=== PATIENT | male | born 1955 | race Caucasian/White ===

== ENCOUNTER 2017-11-21 15:53 | Inpatient (IN) | payer MEDICAID ==
[~2017-11-21] VITALS: Ht 175.3 cm; Wt 71.2 kg
[~2017-11-21 15:53] MED LIST: AMLO2.5T45 PO; FURO20TA4 PO; GLIM1TAB2 PO
[2017-11-21] MEDS ORDERED: ONDANSETRON HCL 4MG/2ML INJ IV STA (16:28)
[2017-11-21] MEDS ORDERED: ASPIRIN 81MG TABLET PO ONE (16:30)
[2017-11-21] MEDS ORDERED: FUROSEMIDE 40MG/4ML VIAL IV ONE (16:30)
[2017-11-21 17:29] LABS: BASOPHILS % 0.8 % (0.0-2.0); EOSINOPHILS % 1.9 % (0.0-5.0); HEMATOCRIT. 23.4 % (42.0-52.0); HEMOGLOBIN. 7.9 g/dL (14.0-18.0); LYMPHOCYTES % 8.5 % (20.0-50.0); MEAN CORPUSCULAR HEMOGLOBIN 30.7 pg (28.0-32.0); MEAN CORPUSCULAR VOLUME 90.3 fL (80.0-94.0); MEAN PLATELET VOLUME 9.2 fl (7.4-10.4); MONOCYTES % 13.3 % (2.0-8.0); NEUTROPHILS % 75.5 % (40.0-76.0); PLATELET 224 x1000/uL (130-400); RED BLOOD CELL COUNT 2.59 mill/uL (4.7-6.1)
[2017-11-21 17:35] LABS: CHLORIDE 99 mEq/L (98-107); INR 1.2; PARTIAL THROMBOPLASTIN TIME 32.2 sec (23.4-31.0); PROTHROMBIN TIME 11.8 sec (9.1-11.1)
[2017-11-21 17:42] LABS: ETHANOL BLOOD < 10 mg/dL
[2017-11-21] MEDS ORDERED: SODIUM BICARBONATE 8.4% 1 MEQ/ML 50ML SYR IV ONE (18:30)
[2017-11-21] MEDS ORDERED: CALCIUM CHLORIDE 1GM/10ML SYR IV ONE ×2 (18:30→18:42)
[2017-11-21] MEDS ORDERED: SODIUM POLYSTYRENE SULFONATE 15 G/60 ML BOT PO ONE (18:30)
[2017-11-21 21:18] LABS: BASOPHILS % 0.7 % (0.0-2.0); HEMATOCRIT. 23.3 % (42.0-52.0); HEMOGLOBIN. 7.9 g/dL (14.0-18.0); LYMPHOCYTES % 9.7 % (20.0-50.0); MEAN CORPUSCULAR HEMOGLOBIN 30.7 pg (28.0-32.0); MEAN CORPUSCULAR VOLUME 90.5 fL (80.0-94.0); MONOCYTES % 14.4 % (2.0-8.0); NEUTROPHILS % 72.2 % (40.0-76.0); PLATELET 216 x1000/uL (130-400); RED BLOOD CELL COUNT 2.58 mill/uL (4.7-6.1)
[2017-11-21 23:15] VITALS: BP 159/86
[2017-11-22] VITALS: BP 171/91
[2017-11-22] MEDS ORDERED: GUAIFENESIN 200MG/10ML SUGAR FREE UDC PO PRN (00:15)
[2017-11-22] MEDS ORDERED: DIPHENHYDRAMINE 50MG/ML VIAL IV PRN (00:15)
[2017-11-22] MEDS ORDERED: DEXTROSE 50% WATER 50ML SYRINGE IV PRN (00:15)
[2017-11-22] MEDS ORDERED: IPRATROPIUM/ALBUTEROL 0.5-3(2.5)MG/3ML NEB INH PRN (00:15)
[2017-11-22] MEDS: CLONIDINE 0.1MG TABLET PO PRN (03:36)
[2017-11-22 04:00] VITALS: BP 163/76
[2017-11-22] MEDS: SODIUM CHLORIDE 0.9% INJ 3ML FLUSH IVF SCH ×3 (05:06→22:01)
[2017-11-22] MEDS: INSULIN LISPRO 100 UNITS/ML SUBCUT SCH ×4 (05:07→21:00)
[2017-11-22] MEDS: BLOOD SUGAR DIAGNOSTIC STRIP TEST SCH ×4 (05:08→21:27)
[2017-11-22 08:25] VITALS: BP 119/68
[2017-11-22 10:29] LABS: HEMATOCRIT. 21.2 % (42.0-52.0); HEMOGLOBIN. 7.4 g/dL (14.0-18.0); MEAN CORPUSCULAR HEMOGLOBIN 31.3 pg (28.0-32.0); MEAN CORPUSCULAR VOLUME 89.6 fL (80.0-94.0); MEAN PLATELET VOLUME 8.7 fl (7.4-10.4); PLATELET 207 x1000/uL (130-400); RED BLOOD CELL COUNT 2.36 mill/uL (4.7-6.1)
[2017-11-22 11:54] LABS: PLATELET ESTIMATE NORMAL
[2017-11-22 12:00] VITALS: BP 121/63
[2017-11-22 16:30] VITALS: BP 141/57
[2017-11-22 20:00] VITALS: BP 137/80
[2017-11-22] MEDS: EPOETIN ALFA 10000UNITS/ML VIAL SUBCUT SCH (22:01)
[2017-11-23] VITALS: BP 151/72
[2017-11-23 04:00] VITALS: BP 143/61
[2017-11-23] MEDS: SODIUM CHLORIDE 0.9% INJ 3ML FLUSH IVF SCH ×3 (06:29→21:44)
[2017-11-23] MEDS: BLOOD SUGAR DIAGNOSTIC STRIP TEST SCH ×4 (07:08→21:42)
[2017-11-23] MEDS: INSULIN LISPRO 100 UNITS/ML SUBCUT SCH ×4 (07:08→21:00)
[2017-11-23 08:00] VITALS: BP 148/66
[2017-11-23 12:00] VITALS: BP 133/74
[2017-11-23 12:30] LABS: HEMATOCRIT. 21.5 % (42.0-52.0); HEMOGLOBIN. 7.4 g/dL (14.0-18.0); MEAN CORPUSCULAR HEMOGLOBIN 31.3 pg (28.0-32.0); MEAN CORPUSCULAR VOLUME 91.1 fL (80.0-94.0); MEAN PLATELET VOLUME 8.9 fl (7.4-10.4); PLATELET 187 x1000/uL (130-400); RED BLOOD CELL COUNT 2.36 mill/uL (4.7-6.1); RED CELL DISTRIBUTION WIDTH 15.9 % (11.6-14.6)
[2017-11-23 14:34] LABS: PLATELET ESTIMATE NORMAL
[2017-11-23 16:00] VITALS: BP 126/79
[2017-11-23 20:00] VITALS: BP 166/83
[2017-11-24] VITALS: BP 143/71
[2017-11-24 04:00] VITALS: BP 157/75
[2017-11-24] MEDS: SODIUM CHLORIDE 0.9% INJ 3ML FLUSH IVF SCH ×3 (06:00→21:33)
[2017-11-24] MEDS: BLOOD SUGAR DIAGNOSTIC STRIP TEST SCH ×4 (07:10→21:29)
[2017-11-24] MEDS: INSULIN LISPRO 100 UNITS/ML SUBCUT SCH ×4 (07:40→21:33)
[2017-11-24 08:00] VITALS: BP 173/101
[2017-11-24] MEDS: CLONIDINE 0.1MG TABLET PO PRN (10:08)
[2017-11-24 10:36] LABS: HEMATOCRIT. 21.6 % (42.0-52.0); HEMOGLOBIN. 7.5 g/dL (14.0-18.0); MEAN CORPUSCULAR VOLUME 90.2 fL (80.0-94.0); MEAN PLATELET VOLUME 8.9 fl (7.4-10.4); PLATELET 192 x1000/uL (130-400); RED CELL DISTRIBUTION WIDTH 15.7 % (11.6-14.6)
[2017-11-24 12:00] VITALS: BP 129/62
[2017-11-24 14:36] LABS: PLATELET ESTIMATE NORMAL
[2017-11-24 16:00] VITALS: BP 159/68
[2017-11-24 20:00] VITALS: BP 167/80
[2017-11-24] MEDS: ACETAMINOPHEN 325MG TABLET PO PRN (21:31)
[2017-11-25] VITALS: BP 169/69
[2017-11-25 04:00] VITALS: BP 152/71
[2017-11-25] MEDS: BLOOD SUGAR DIAGNOSTIC STRIP TEST SCH ×4 (06:32→20:45)
[2017-11-25] MEDS: SODIUM CHLORIDE 0.9% INJ 3ML FLUSH IVF SCH ×3 (06:32→21:29)
[2017-11-25] MEDS: INSULIN LISPRO 100 UNITS/ML SUBCUT SCH ×4 (06:32→20:45)
[2017-11-25 08:00] VITALS: BP 162/83
[2017-11-25] MEDS: CLONIDINE 0.1MG TABLET PO PRN ×2 (10:38→20:53)
[2017-11-25 11:56] VITALS: BP 153/72
[2017-11-25 16:00] VITALS: BP 156/70
[2017-11-25 20:00] VITALS: BP 178/84
[2017-11-25] MEDS: ACETAMINOPHEN 325MG TABLET PO PRN (20:53)
[2017-11-25] MEDS: EPOETIN ALFA 10000UNITS/ML VIAL SUBCUT SCH (21:29)
[2017-11-26] VITALS: BP 160/86
[2017-11-26 04:00] VITALS: BP 172/84
[2017-11-26] MEDS: CLONIDINE 0.1MG TABLET PO PRN (04:56)
[2017-11-26] MEDS: SODIUM CHLORIDE 0.9% INJ 3ML FLUSH IVF SCH ×3 (05:22→21:17)
[2017-11-26] MEDS: INSULIN LISPRO 100 UNITS/ML SUBCUT SCH ×4 (06:09→20:10)
[2017-11-26] MEDS: BLOOD SUGAR DIAGNOSTIC STRIP TEST SCH ×4 (06:09→20:10)
[2017-11-26 12:00] VITALS: BP 122/52
[2017-11-26 15:46] LABS: MEAN CORPUSCULAR HEMOGLOBIN 30.8 pg (28.0-32.0); MEAN CORPUSCULAR VOLUME 89.9 fL (80.0-94.0); MEAN PLATELET VOLUME 9.2 fl (7.4-10.4); PLATELET 200 x1000/uL (130-400); RED BLOOD CELL COUNT 2.24 mill/uL (4.7-6.1); RED CELL DISTRIBUTION WIDTH 16.2 % (11.6-14.6)
[2017-11-26 15:48] LABS: HEMOGLOBIN. 6.9 g/dL (14.0-18.0)
[2017-11-26 15:49] LABS: HEMATOCRIT. 20.1 % (42.0-52.0)
[2017-11-26 16:00] VITALS: BP 135/67
[2017-11-26 16:26] LABS: PLATELET ESTIMATE NORMAL
[2017-11-26 20:00] VITALS: BP 159/66
[2017-11-27] VITALS: BP 169/79
[2017-11-27] MEDS: CLONIDINE 0.1MG TABLET PO PRN (00:01)
[2017-11-27 04:00] VITALS: BP 155/75
[2017-11-27] MEDS: SODIUM CHLORIDE 0.9% INJ 3ML FLUSH IVF SCH ×3 (06:00→21:43)
[2017-11-27] MEDS: BLOOD SUGAR DIAGNOSTIC STRIP TEST SCH ×4 (06:12→21:35)
[2017-11-27] MEDS: INSULIN LISPRO 100 UNITS/ML SUBCUT SCH ×4 (06:12→21:00)
[2017-11-27 08:00] VITALS: BP 150/70
[2017-11-27 12:00] VITALS: BP 136/73
[2017-11-27 16:00] VITALS: BP 143/86
[2017-11-27 20:00] VITALS: BP 159/77
[2017-11-27] MEDS: EPOETIN ALFA 10000UNITS/ML VIAL SUBCUT SCH (21:43)
[2017-11-28] VITALS (10 sets, daily range): BP systolic 125–175; BP diastolic 36–93
[2017-11-28] MEDS: SODIUM CHLORIDE 0.9% INJ 3ML FLUSH IVF SCH ×3 (06:00→21:36)
[2017-11-28] MEDS: INSULIN LISPRO 100 UNITS/ML SUBCUT SCH ×4 (06:56→21:00)
[2017-11-28] MEDS: BLOOD SUGAR DIAGNOSTIC STRIP TEST SCH ×4 (06:56→19:55)
[2017-11-28 09:34] LABS: HEMOGLOBIN. 7.3 g/dL (14.0-18.0); MEAN CORPUSCULAR HEMOGLOBIN 31.3 pg (28.0-32.0); MEAN CORPUSCULAR VOLUME 89.9 fL (80.0-94.0); MEAN PLATELET VOLUME 8.6 fl (7.4-10.4); PLATELET 215 x1000/uL (130-400); RED BLOOD CELL COUNT 2.34 mill/uL (4.7-6.1); RED CELL DISTRIBUTION WIDTH 16.5 % (11.6-14.6)
[2017-11-28 11:37] LABS: PLATELET ESTIMATE NORMAL
[2017-11-28 16:29] LABS: HEPATITIS B SURFACE ANTIGEN NEGATIVE
[2017-11-28 16:57] LABS: HEPATITIS B CORE AB IGM NEGATIVE
[2017-11-28 16:58] LABS: HEPATITIS A AB IGM NEGATIVE (NEGATIVE)
[2017-11-28 17:16] LABS: HEMATOCRIT 23.8 % (42.0-52.0); HEMOGLOBIN 8.2 g/dL (14.0-18.0)
[2017-11-29] VITALS: BP 149/61
[2017-11-29] MEDS: SODIUM CHLORIDE 0.9% INJ 3ML FLUSH IVF SCH ×3 (05:21→22:00)
[2017-11-29 08:00] VITALS: BP 158/85
[2017-11-29] MEDS: CLONIDINE 0.1MG TABLET PO PRN (09:29)
[2017-11-29 12:00] VITALS: BP 150/80
[2017-11-29] MEDS: BLOOD SUGAR DIAGNOSTIC STRIP TEST SCH ×2 (12:35→20:37)
[2017-11-29] MEDS: INSULIN LISPRO 100 UNITS/ML SUBCUT SCH ×2 (12:35→20:37)
[2017-11-29 16:20] VITALS: BP 156/84
[2017-11-30] VITALS: BP 142/81
[2017-11-30 04:00] VITALS: BP 146/81
[2017-11-30] MEDS: ACETAMINOPHEN 325MG TABLET PO PRN (04:28)
[2017-11-30] MEDS: SODIUM CHLORIDE 0.9% INJ 3ML FLUSH IVF SCH ×3 (06:00→22:00)
[2017-11-30] MEDS: BLOOD SUGAR DIAGNOSTIC STRIP TEST SCH ×4 (06:30→21:00)
[2017-11-30] MEDS: INSULIN LISPRO 100 UNITS/ML SUBCUT SCH ×4 (06:31→21:00)
[2017-11-30 08:00] VITALS: BP 160/82
[2017-11-30] MEDS: CLONIDINE 0.1MG TABLET PO PRN (08:43)
[2017-11-30 12:00] VITALS: BP 140/70
[2017-11-30 16:00] VITALS: BP 142/72
[2017-11-30 20:00] VITALS: BP 161/90
[2017-12-01] VITALS (7 sets, daily range): BP systolic 126–185; BP diastolic 74–100
[2017-12-01] MEDS: ACETAMINOPHEN 325MG TABLET PO PRN ×2 (01:28→15:16)
[2017-12-01] MEDS: SODIUM CHLORIDE 0.9% INJ 3ML FLUSH IVF SCH ×3 (06:00→22:00)
[2017-12-01] MEDS: BLOOD SUGAR DIAGNOSTIC STRIP TEST SCH ×3 (07:10→21:00)
[2017-12-01] MEDS: INSULIN LISPRO 100 UNITS/ML SUBCUT SCH ×3 (07:40→21:00)
[2017-12-01 12:05] LABS: HEMOGLOBIN. 8.2 g/dL (14.0-18.0); MEAN CORPUSCULAR HEMOGLOBIN 31.1 pg (28.0-32.0); MEAN CORPUSCULAR VOLUME 90.7 fL (80.0-94.0); MEAN PLATELET VOLUME 8.9 fl (7.4-10.4); PLATELET 155 x1000/uL (130-400); RED BLOOD CELL COUNT 2.65 mill/uL (4.7-6.1); RED CELL DISTRIBUTION WIDTH 16.6 % (11.6-14.6)
[2017-12-01 14:19] LABS: PLATELET ESTIMATE NORMAL
[2017-12-01] MEDS: CLONIDINE 0.1MG TABLET PO PRN (19:09)
[2017-12-02] MEDS: ACETAMINOPHEN 325MG TABLET PO PRN ×2 (03:58→17:02)
[2017-12-02] MEDS: CLONIDINE 0.1MG TABLET PO PRN ×2 (03:58→20:46)
[2017-12-02 04:00] VITALS: BP 172/81
[2017-12-02] MEDS: SODIUM CHLORIDE 0.9% INJ 3ML FLUSH IVF SCH ×3 (06:00→22:00)
[2017-12-02] MEDS: INSULIN LISPRO 100 UNITS/ML SUBCUT SCH ×4 (07:00→21:00)
[2017-12-02] MEDS: BLOOD SUGAR DIAGNOSTIC STRIP TEST SCH ×4 (07:00→20:42)
[2017-12-02 08:00] VITALS: BP 129/69
[2017-12-02 12:00] VITALS: BP 147/70
[2017-12-02 16:00] VITALS: BP 136/71
[2017-12-02 20:00] VITALS: BP 166/91
[2017-12-03 04:00] VITALS: BP 122/77
[2017-12-03] MEDS: SODIUM CHLORIDE 0.9% INJ 3ML FLUSH IVF SCH ×3 (05:00→20:29)
[2017-12-03] MEDS: BLOOD SUGAR DIAGNOSTIC STRIP TEST SCH ×4 (05:11→20:29)
[2017-12-03] MEDS: INSULIN LISPRO 100 UNITS/ML SUBCUT SCH ×4 (05:13→20:29)
[2017-12-03 06:24] LABS: HEMATOCRIT. 24.4 % (42.0-52.0); HEMOGLOBIN. 8.3 g/dL (14.0-18.0); MEAN CORPUSCULAR HEMOGLOBIN 31.1 pg (28.0-32.0); MEAN CORPUSCULAR VOLUME 91.6 fL (80.0-94.0); MEAN PLATELET VOLUME 9.5 fl (7.4-10.4); PLATELET 154 x1000/uL (130-400); RED BLOOD CELL COUNT 2.66 mill/uL (4.7-6.1)
[2017-12-03 15:29] LABS: PLATELET ESTIMATE NORMAL
[2017-12-03 16:00] VITALS: BP 170/93
[2017-12-03 18:33] VITALS: BP 121/88
[2017-12-04] MEDS: SODIUM POLYSTYRENE SULFONATE 15 G/60 ML BOT PO NR ×2 (00:20→00:26)
[2017-12-04] MEDS: SODIUM CHLORIDE 0.9% INJ 3ML FLUSH IVF SCH ×3 (05:30→20:39)
[2017-12-04] MEDS: BLOOD SUGAR DIAGNOSTIC STRIP TEST SCH ×4 (06:12→20:45)
[2017-12-04] MEDS: INSULIN LISPRO 100 UNITS/ML SUBCUT SCH ×4 (06:12→20:45)
[2017-12-04] MEDS: ACETAMINOPHEN 325MG TABLET PO PRN (07:52)
[2017-12-04 12:16] VITALS: BP 163/84
[2017-12-04 12:56] LABS: HEMATOCRIT. 21.4 % (42.0-52.0); HEMOGLOBIN. 7.3 g/dL (14.0-18.0); MEAN CORPUSCULAR HEMOGLOBIN 30.9 pg (28.0-32.0); MEAN CORPUSCULAR VOLUME 90.6 fL (80.0-94.0); MEAN PLATELET VOLUME 9.1 fl (7.4-10.4); PLATELET 119 x1000/uL (130-400); RED BLOOD CELL COUNT 2.37 mill/uL (4.7-6.1); RED CELL DISTRIBUTION WIDTH 16.7 % (11.6-14.6)
[2017-12-04 13:31] LABS: PLATELET ESTIMATE SLIGHTLY DECREASED
[2017-12-04 20:00] VITALS: BP 158/88
[2017-12-05] VITALS: BP 175/99
[2017-12-05 04:00] VITALS: BP 158/86
[2017-12-05] MEDS: SODIUM CHLORIDE 0.9% INJ 3ML FLUSH IVF SCH ×3 (05:12→20:03)
[2017-12-05] MEDS: BLOOD SUGAR DIAGNOSTIC STRIP TEST SCH ×4 (05:33→20:07)
[2017-12-05] MEDS: INSULIN LISPRO 100 UNITS/ML SUBCUT SCH ×4 (05:34→20:07)
[2017-12-05 12:19] VITALS: BP 182/99
[2017-12-05 12:59] VITALS: BP 173/90
[2017-12-05 16:08] VITALS: BP 126/81
[2017-12-05 20:00] VITALS: BP 176/88
[2017-12-05] MEDS: CLONIDINE 0.1MG TABLET PO PRN (20:18)
[2017-12-06 04:00] VITALS: BP 165/85
[2017-12-06] MEDS: SODIUM CHLORIDE 0.9% INJ 3ML FLUSH IVF SCH ×3 (06:00→20:44)
[2017-12-06] MEDS: BLOOD SUGAR DIAGNOSTIC STRIP TEST SCH ×4 (06:28→20:44)
[2017-12-06] MEDS: INSULIN LISPRO 100 UNITS/ML SUBCUT SCH ×4 (06:28→20:45)
[2017-12-06 08:00] VITALS: BP_SYST 159; BP_DIAS 70; BP_DIAS 78
[2017-12-06 10:08] LABS: HEMATOCRIT 26.2 % (42.0-52.0); HEMOGLOBIN 8.9 g/dL (14.0-18.0)
[2017-12-06 12:00] VITALS: BP 140/81
[2017-12-06 16:00] VITALS: BP 145/72
[2017-12-06] MEDS ORDERED: SODIUM POLYSTYRENE SULFONATE 15 G/60 ML BOT PO SCH (19:45)
[2017-12-06 20:00] VITALS: BP 162/86
[2017-12-06] MEDS: CLONIDINE 0.1MG TABLET PO PRN (20:29)
[2017-12-07] VITALS: BP 184/100
[2017-12-07] MEDS: CLONIDINE 0.1MG TABLET PO PRN (01:33)
[2017-12-07] MEDS: SODIUM CHLORIDE 0.9% INJ 3ML FLUSH IVF SCH ×3 (05:24→21:13)
[2017-12-07] MEDS: INSULIN LISPRO 100 UNITS/ML SUBCUT SCH ×4 (06:18→20:52)
[2017-12-07] MEDS: BLOOD SUGAR DIAGNOSTIC STRIP TEST SCH ×4 (06:18→20:52)
[2017-12-07 16:00] VITALS: BP 114/69
[2017-12-07 20:00] VITALS: BP 160/75
[2017-12-07 23:54] LABS: HEMATOCRIT. 25.7 % (42.0-52.0); HEMOGLOBIN. 8.8 g/dL (14.0-18.0); MEAN CORPUSCULAR HEMOGLOBIN 31.1 pg (28.0-32.0); MEAN PLATELET VOLUME 8.9 fl (7.4-10.4); PLATELET 125 x1000/uL (130-400); RED BLOOD CELL COUNT 2.83 mill/uL (4.7-6.1); RED CELL DISTRIBUTION WIDTH 16.6 % (11.6-14.6)
[2017-12-08 00:53] LABS: PLATELET ESTIMATE SLIGHTLY DECREASED
[2017-12-08] MEDS: SODIUM CHLORIDE 0.9% INJ 3ML FLUSH IVF SCH ×3 (06:00→21:07)
[2017-12-08] MEDS: BLOOD SUGAR DIAGNOSTIC STRIP TEST SCH ×4 (07:10→20:29)
[2017-12-08] MEDS: INSULIN LISPRO 100 UNITS/ML SUBCUT SCH ×4 (07:40→20:58)
[2017-12-08 12:00] VITALS: BP 149/78
[2017-12-08 12:33] LABS: BASOPHILS % 0.6 % (0.0-2.0); EOSINOPHILS % 2.9 % (0.0-5.0); HEMATOCRIT. 22.2 % (42.0-52.0); HEMOGLOBIN. 7.6 g/dL (14.0-18.0); LYMPHOCYTES % 13.8 % (20.0-50.0); MEAN CORPUSCULAR VOLUME 90.8 fL (80.0-94.0); MEAN PLATELET VOLUME 9.1 fl (7.4-10.4); NEUTROPHILS % 69.7 % (40.0-76.0); PLATELET 109 x1000/uL (130-400); RED BLOOD CELL COUNT 2.44 mill/uL (4.7-6.1); RED CELL DISTRIBUTION WIDTH 16.4 % (11.6-14.6)
[2017-12-08 20:00] VITALS: BP 168/83
[2017-12-08] MEDS: QUETIAPINE FUMARATE 25MG TABLET PO SCH (20:54)
[2017-12-08] MEDS: CLONIDINE 0.1MG TABLET PO PRN (20:56)
[2017-12-09] VITALS: BP 161/87
[2017-12-09 04:00] VITALS: BP 111/69
[2017-12-09] MEDS: BLOOD SUGAR DIAGNOSTIC STRIP TEST SCH ×4 (05:46→20:54)
[2017-12-09] MEDS: SODIUM CHLORIDE 0.9% INJ 3ML FLUSH IVF SCH ×3 (05:47→21:12)
[2017-12-09] MEDS: INSULIN LISPRO 100 UNITS/ML SUBCUT SCH ×4 (05:48→21:09)
[2017-12-09] MEDS: QUETIAPINE FUMARATE 25MG TABLET PO SCH ×2 (08:23→21:10)
[2017-12-09 20:00] VITALS: BP 166/83
[2017-12-09] MEDS: CLONIDINE 0.1MG TABLET PO PRN (21:10)
[2017-12-10] VITALS: BP 154/76
[2017-12-10 04:00] VITALS: BP 161/77
[2017-12-10] MEDS: SODIUM CHLORIDE 0.9% INJ 3ML FLUSH IVF SCH ×3 (06:00→22:00)
[2017-12-10] MEDS: BLOOD SUGAR DIAGNOSTIC STRIP TEST SCH ×4 (06:08→20:32)
[2017-12-10] MEDS: INSULIN LISPRO 100 UNITS/ML SUBCUT SCH ×4 (06:10→20:32)
[2017-12-10 08:00] VITALS: BP 160/81
[2017-12-10] MEDS: QUETIAPINE FUMARATE 25MG TABLET PO SCH ×2 (08:14→20:31)
[2017-12-10 12:43] VITALS: BP 177/92
[2017-12-10 16:11] LABS: HEMATOCRIT. 21.7 % (42.0-52.0); HEMOGLOBIN. 7.3 g/dL (14.0-18.0); MEAN CORPUSCULAR HEMOGLOBIN 30.9 pg (28.0-32.0); MEAN CORPUSCULAR VOLUME 91.8 fL (80.0-94.0); MEAN PLATELET VOLUME 9.3 fl (7.4-10.4); PLATELET 101 x1000/uL (130-400); RED BLOOD CELL COUNT 2.37 mill/uL (4.7-6.1); RED CELL DISTRIBUTION WIDTH 16.2 % (11.6-14.6)
[2017-12-10 16:46] LABS: PLATELET ESTIMATE DECREASED
[2017-12-10 16:56] VITALS: BP 167/97
[2017-12-10 20:00] VITALS: BP 184/106
[2017-12-10] MEDS: CLONIDINE 0.1MG TABLET PO PRN (20:30)
[2017-12-11] VITALS: BP 168/88
[2017-12-11] MEDS: SODIUM CHLORIDE 0.9% INJ 3ML FLUSH IVF SCH ×3 (06:00→22:00)
[2017-12-11] MEDS: BLOOD SUGAR DIAGNOSTIC STRIP TEST SCH ×4 (07:10→20:22)
[2017-12-11] MEDS: INSULIN LISPRO 100 UNITS/ML SUBCUT SCH ×4 (07:40→20:21)
[2017-12-11 08:00] VITALS: BP 179/97
[2017-12-11] MEDS: QUETIAPINE FUMARATE 25MG TABLET PO SCH ×2 (08:00→20:21)
[2017-12-11] MEDS: ACETAMINOPHEN 325MG TABLET PO PRN (08:00)
[2017-12-11] MEDS: CLONIDINE 0.1MG TABLET PO PRN (08:00)
[2017-12-11 12:09] VITALS: BP 146/68
[2017-12-11 20:00] VITALS: BP 155/72
[2017-12-11] MEDS: EPOETIN ALFA 10000UNITS/ML VIAL SUBCUT SCH (20:22)
[2017-12-12] VITALS: BP 177/99
[2017-12-12] MEDS: BLOOD SUGAR DIAGNOSTIC STRIP TEST SCH ×4 (05:21→21:00)
[2017-12-12] MEDS: INSULIN LISPRO 100 UNITS/ML SUBCUT SCH ×4 (05:21→21:00)
[2017-12-12] MEDS: SODIUM CHLORIDE 0.9% INJ 3ML FLUSH IVF SCH (06:00)
[2017-12-12] MEDS: QUETIAPINE FUMARATE 25MG TABLET PO SCH (07:41)
[2017-12-12 08:00] VITALS: BP 176/100
[2017-12-12 09:52] LABS: BASOPHILS % 0.8 % (0.0-2.0); EOSINOPHILS % 4.2 % (0.0-5.0); HEMATOCRIT. 22.8 % (42.0-52.0); HEMOGLOBIN. 7.8 g/dL (14.0-18.0); LYMPHOCYTES % 21.9 % (20.0-50.0); MEAN CORPUSCULAR HEMOGLOBIN 31.2 pg (28.0-32.0); MEAN CORPUSCULAR VOLUME 90.9 fL (80.0-94.0); MEAN PLATELET VOLUME 9.4 fl (7.4-10.4); MONOCYTES % 13.1 % (2.0-8.0); PLATELET 109 x1000/uL (130-400); RED BLOOD CELL COUNT 2.51 mill/uL (4.7-6.1); RED CELL DISTRIBUTION WIDTH 15.7 % (11.6-14.6)
[2017-12-12] MEDS: CLONIDINE 0.1MG TABLET PO PRN (10:26)
[2017-12-12 12:00] VITALS: BP 170/83
[2017-12-12] MEDS: LOSARTAN POTASSIUM 50 MG TABLET PO SCH (14:30)
[2017-12-12 16:00] VITALS: BP 146/76
[2017-12-12] MEDS: QUETIAPINE FUMARATE 50MG TABLET PO SCH (21:00)
[2017-12-12] MEDS: CARVEDILOL 6.25 MG TABLET PO SCH (21:00)
[2017-12-13] VITALS: BP 158/81
[2017-12-13 04:00] VITALS: BP 176/89
[2017-12-13] MEDS: CLONIDINE 0.1MG TABLET PO PRN (04:52)
[2017-12-13] MEDS: INSULIN LISPRO 100 UNITS/ML SUBCUT SCH ×4 (06:01→21:00)
[2017-12-13] MEDS: BLOOD SUGAR DIAGNOSTIC STRIP TEST SCH ×4 (06:01→21:00)
[2017-12-13 08:08] VITALS: BP 163/78
[2017-12-13] MEDS: CARVEDILOL 6.25 MG TABLET PO SCH ×2 (08:16→21:00)
[2017-12-13] MEDS: LOSARTAN POTASSIUM 50 MG TABLET PO SCH ×2 (08:16→21:00)
[2017-12-13] MEDS: QUETIAPINE FUMARATE 50MG TABLET PO SCH (08:16)
[2017-12-13] MEDS: PAROXETINE HCL 10MG TABLET PO SCH (10:53)
[2017-12-13] MEDS: SODIUM CHLORIDE 0.9% INJ 3ML FLUSH IVF SCH ×2 (13:10→22:00)
[2017-12-13] MEDS: EPOETIN ALFA 10000UNITS/ML VIAL SUBCUT SCH (21:00)
[2017-12-14] MEDS: SODIUM CHLORIDE 0.9% INJ 3ML FLUSH IVF SCH ×3 (06:00→20:34)
[2017-12-14] MEDS: BLOOD SUGAR DIAGNOSTIC STRIP TEST SCH ×4 (06:17→20:33)
[2017-12-14] MEDS: INSULIN LISPRO 100 UNITS/ML SUBCUT SCH ×4 (07:40→20:33)
[2017-12-14] MEDS: CARVEDILOL 6.25 MG TABLET PO SCH ×2 (07:56→20:33)
[2017-12-14] MEDS: LOSARTAN POTASSIUM 50 MG TABLET PO SCH ×2 (07:56→20:33)
[2017-12-14] MEDS: PAROXETINE HCL 10MG TABLET PO SCH ×2 (09:00→09:18)
[2017-12-14] MEDS: ISOSORB DINIT/HYDRALAZINE HCL 20/37.5MG TABLET PO SCH ×2 (14:00→21:18)
[2017-12-14 20:00] VITALS: BP 150/82
[2017-12-15] MEDS: ISOSORB DINIT/HYDRALAZINE HCL 20/37.5MG TABLET PO SCH ×3 (06:00→21:46)
[2017-12-15] MEDS: SODIUM CHLORIDE 0.9% INJ 3ML FLUSH IVF SCH ×3 (06:00→21:39)
[2017-12-15] MEDS: BLOOD SUGAR DIAGNOSTIC STRIP TEST SCH ×4 (06:12→21:42)
[2017-12-15] MEDS: INSULIN LISPRO 100 UNITS/ML SUBCUT SCH ×4 (06:12→21:00)
[2017-12-15] MEDS: CARVEDILOL 6.25 MG TABLET PO SCH ×2 (07:32→21:46)
[2017-12-15] MEDS: LOSARTAN POTASSIUM 50 MG TABLET PO SCH ×2 (07:32→21:46)
[2017-12-15 08:00] VITALS: BP 160/86
[2017-12-15] MEDS: PAROXETINE HCL 10MG TABLET PO SCH (09:28)
[2017-12-15 12:00] VITALS: BP 171/96
[2017-12-15 16:00] VITALS: BP 160/84
[2017-12-15 20:00] VITALS: BP 170/87
[2017-12-16] VITALS: BP 164/79
[2017-12-16] MEDS: ONDANSETRON HCL 4MG/2ML INJ IV PRN ×2 (03:22→08:29)
[2017-12-16 04:00] VITALS: BP 148/81
[2017-12-16] MEDS: SODIUM CHLORIDE 0.9% INJ 3ML FLUSH IVF SCH ×3 (05:21→22:00)
[2017-12-16] MEDS: BLOOD SUGAR DIAGNOSTIC STRIP TEST SCH ×4 (05:22→21:00)
[2017-12-16] MEDS: ISOSORB DINIT/HYDRALAZINE HCL 20/37.5MG TABLET PO SCH (05:22)
[2017-12-16] MEDS: INSULIN LISPRO 100 UNITS/ML SUBCUT SCH ×4 (05:22→21:00)
[2017-12-16 08:00] VITALS: BP 162/90
[2017-12-16] MEDS: CARVEDILOL 6.25 MG TABLET PO SCH ×2 (08:28→21:00)
[2017-12-16] MEDS: PAROXETINE HCL 10MG TABLET PO SCH (08:28)
[2017-12-16] MEDS: LOSARTAN POTASSIUM 50 MG TABLET PO SCH ×2 (08:28→22:05)
[2017-12-16] MEDS: ISOSORBIDE DINITRATE 30MG TABLET PO SCH ×3 (09:00→16:19)
[2017-12-16] MEDS: HYDRALAZINE HCL 100MG TABLET PO SCH ×2 (14:00→22:20)
[2017-12-16] MEDS ORDERED: PANTOPRAZOLE 40MG DR TABLET PO SCH (16:00)
[2017-12-16] MEDS: PANTOPRAZOLE SODIUM 40 MG/VIAL IV SCH (17:51)
[2017-12-16] MEDS: EPOETIN ALFA 10000UNITS/ML VIAL SUBCUT SCH (22:07)
[2017-12-17 04:00] VITALS: BP 153/79
[2017-12-17] MEDS: SODIUM CHLORIDE 0.9% INJ 3ML FLUSH IVF SCH ×3 (05:49→21:35)
[2017-12-17] MEDS: HYDRALAZINE HCL 100MG TABLET PO SCH ×3 (05:50→21:36)
[2017-12-17] MEDS: BLOOD SUGAR DIAGNOSTIC STRIP TEST SCH ×4 (07:10→21:00)
[2017-12-17] MEDS: INSULIN LISPRO 100 UNITS/ML SUBCUT SCH ×4 (07:40→21:00)
[2017-12-17 08:00] VITALS: BP 149/74
[2017-12-17] MEDS: PANTOPRAZOLE SODIUM 40 MG/VIAL IV SCH (09:00)
[2017-12-17] MEDS: ISOSORBIDE DINITRATE 30MG TABLET PO SCH ×3 (09:00→17:00)
[2017-12-17] MEDS: PAROXETINE HCL 10MG TABLET PO SCH (09:00)
[2017-12-17] MEDS: CARVEDILOL 6.25 MG TABLET PO SCH ×2 (09:00→21:34)
[2017-12-17] MEDS: LOSARTAN POTASSIUM 50 MG TABLET PO SCH ×2 (09:00→21:35)
[2017-12-17 12:00] VITALS: BP 150/85
[2017-12-17 16:00] VITALS: BP 162/85
[2017-12-17 20:00] VITALS: BP 179/103
[2017-12-18] VITALS: BP 165/90
[2017-12-18] MEDS: HYDRALAZINE HCL 100MG TABLET PO SCH ×2 (05:02→14:00)
[2017-12-18] MEDS: SODIUM CHLORIDE 0.9% INJ 3ML FLUSH IVF SCH ×3 (05:02→22:00)
[2017-12-18 08:00] VITALS: BP 161/70
[2017-12-18] MEDS: PANTOPRAZOLE SODIUM 40 MG/VIAL IV SCH (08:09)
[2017-12-18] MEDS: LOSARTAN POTASSIUM 50 MG TABLET PO SCH ×2 (08:14→21:00)
[2017-12-18] MEDS: PAROXETINE HCL 10MG TABLET PO SCH (08:14)
[2017-12-18] MEDS: CARVEDILOL 6.25 MG TABLET PO SCH ×2 (08:14→21:00)
[2017-12-18] MEDS: ISOSORBIDE DINITRATE 30MG TABLET PO SCH ×3 (08:14→17:00)
[2017-12-18] MEDS: BLOOD SUGAR DIAGNOSTIC STRIP TEST SCH ×4 (11:00→21:00)
[2017-12-18] MEDS: INSULIN LISPRO 100 UNITS/ML SUBCUT SCH ×4 (11:00→21:00)
[2017-12-18 16:00] VITALS: BP 166/86
[2017-12-19 01:27] VITALS: BP 175/98
[2017-12-19] MEDS: CLONIDINE 0.1MG TABLET PO PRN ×2 (01:34→12:53)
[2017-12-19] MEDS: HYDRALAZINE HCL 100MG TABLET PO SCH ×4 (01:34→21:51)
[2017-12-19] MEDS: SODIUM CHLORIDE 0.9% INJ 3ML FLUSH IVF SCH ×3 (05:02→21:30)
[2017-12-19] MEDS: INSULIN LISPRO 100 UNITS/ML SUBCUT SCH ×4 (05:43→21:00)
[2017-12-19] MEDS: BLOOD SUGAR DIAGNOSTIC STRIP TEST SCH ×4 (05:43→21:00)
[2017-12-19 08:00] VITALS: BP 161/77
[2017-12-19] MEDS: CARVEDILOL 6.25 MG TABLET PO SCH ×2 (08:38→21:51)
[2017-12-19] MEDS: LOSARTAN POTASSIUM 50 MG TABLET PO SCH ×2 (08:39→21:51)
[2017-12-19] MEDS: ISOSORBIDE DINITRATE 30MG TABLET PO SCH ×3 (08:39→18:02)
[2017-12-19] MEDS: PAROXETINE HCL 10MG TABLET PO SCH (09:00)
[2017-12-19] MEDS: PANTOPRAZOLE SODIUM 40 MG/VIAL IV SCH (09:00)
[2017-12-19 12:00] VITALS: BP 170/86
[2017-12-19 12:48] LABS: HEMOGLOBIN. 8.2 g/dL (14.0-18.0); MEAN CORPUSCULAR HEMOGLOBIN 31.3 pg (28.0-32.0); MEAN CORPUSCULAR VOLUME 91.6 fL (80.0-94.0); MEAN PLATELET VOLUME 9.6 fl (7.4-10.4); PLATELET 136 x1000/uL (130-400); RED BLOOD CELL COUNT 2.63 mill/uL (4.7-6.1); RED CELL DISTRIBUTION WIDTH 16.3 % (11.6-14.6)
[2017-12-19 16:00] VITALS: BP 176/82
[2017-12-19 21:49] VITALS: BP 160/90
[2017-12-20 04:00] VITALS: BP 172/81
[2017-12-20] MEDS: SODIUM CHLORIDE 0.9% INJ 3ML FLUSH IVF SCH (06:00)
[2017-12-20] MEDS: HYDRALAZINE HCL 100MG TABLET PO SCH ×4 (06:29→22:47)
[2017-12-20] MEDS: BLOOD SUGAR DIAGNOSTIC STRIP TEST SCH (07:10)
[2017-12-20] MEDS: INSULIN LISPRO 100 UNITS/ML SUBCUT SCH (07:40)
[2017-12-20 08:00] VITALS: BP 136/59
[2017-12-20] MEDS: ISOSORBIDE DINITRATE 30MG TABLET PO SCH ×3 (09:00→16:16)
[2017-12-20] MEDS: PANTOPRAZOLE SODIUM 40 MG/VIAL IV SCH (09:00)
[2017-12-20] MEDS: PAROXETINE HCL 10MG TABLET PO SCH (09:00)
[2017-12-20] MEDS: CARVEDILOL 6.25 MG TABLET PO SCH ×3 (09:00→22:47)
[2017-12-20] MEDS: LOSARTAN POTASSIUM 50 MG TABLET PO SCH ×3 (09:00→22:47)
[2017-12-20 09:05] LABS: PLATELET ESTIMATE NORMAL
[2017-12-20 12:00] VITALS: BP 151/76
[2017-12-20] MEDS ORDERED: ACETAMINOPHEN 325MG TABLET PO PRN (13:00)
[2017-12-20 16:00] VITALS: BP 147/68
[2017-12-20 22:38] VITALS: BP 173/93
[2017-12-21 04:00] VITALS: BP 168/87
[2017-12-21 09:07] VITALS: BP 157/74
[2017-12-21] MEDS: LOSARTAN POTASSIUM 50 MG TABLET PO SCH ×2 (09:10→22:55)
[2017-12-21] MEDS: ISOSORBIDE DINITRATE 30MG TABLET PO SCH ×3 (09:10→16:42)
[2017-12-21] MEDS: PAROXETINE HCL 10MG TABLET PO SCH (09:10)
[2017-12-21] MEDS: CARVEDILOL 6.25 MG TABLET PO SCH ×2 (09:10→22:55)
[2017-12-21 12:00] VITALS: BP 141/96
[2017-12-21] MEDS: HYDRALAZINE HCL 100MG TABLET PO SCH ×2 (14:20→22:55)
[2017-12-21 16:38] VITALS: BP 137/63
[2017-12-21 16:40] LABS: HEMATOCRIT. 23.7 % (42.0-52.0); MEAN CORPUSCULAR VOLUME 91.7 fL (80.0-94.0); PLATELET 161 x1000/uL (130-400); RED BLOOD CELL COUNT 2.59 mill/uL (4.7-6.1); RED CELL DISTRIBUTION WIDTH 16.7 % (11.6-14.6)
[2017-12-21] MEDS: DOCUSATE SODIUM 100MG CAPSULE PO SCH (16:42)
[2017-12-21 20:00] VITALS: BP 133/57
[2017-12-22] VITALS (7 sets, daily range): BP systolic 128–160; BP diastolic 49–86
[2017-12-22 04:42] LABS: PLATELET ESTIMATE NORMAL
[2017-12-22] MEDS: HYDRALAZINE HCL 100MG TABLET PO SCH ×3 (06:00→22:07)
[2017-12-22] MEDS: LOSARTAN POTASSIUM 50 MG TABLET PO SCH ×2 (09:00→21:57)
[2017-12-22] MEDS: CARVEDILOL 6.25 MG TABLET PO SCH ×2 (09:00→21:58)
[2017-12-22] MEDS: ISOSORBIDE DINITRATE 30MG TABLET PO SCH ×2 (09:00→16:10)
[2017-12-22] MEDS: PAROXETINE HCL 10MG TABLET PO SCH (09:00)
[2017-12-22] MEDS: DOCUSATE SODIUM 100MG CAPSULE PO SCH (09:00)
[2017-12-22 15:46] LABS: HEMATOCRIT. 25.6 % (42.0-52.0); HEMOGLOBIN. 8.7 g/dL (14.0-18.0); MEAN CORPUSCULAR HEMOGLOBIN 31.4 pg (28.0-32.0); MEAN CORPUSCULAR VOLUME 92.1 fL (80.0-94.0); PLATELET 156 x1000/uL (130-400); RED BLOOD CELL COUNT 2.78 mill/uL (4.7-6.1)
[2017-12-22 16:35] LABS: FOLIC ACID (FOLATE) SERUM 17.8 ng/mL (>5.38)
[2017-12-22 19:30] LABS: PLATELET ESTIMATE NORMAL
[2017-12-22] MEDS: EPOETIN ALFA 4000UNITS/ML VIAL SUBCUT SCH (21:58)
[2017-12-23 04:00] VITALS: BP 164/78
[2017-12-23] MEDS: HYDRALAZINE HCL 100MG TABLET PO SCH ×3 (05:55→21:45)
[2017-12-23 08:33] VITALS: BP 142/63
[2017-12-23] MEDS: CARVEDILOL 6.25 MG TABLET PO SCH ×2 (08:36→21:00)
[2017-12-23] MEDS: LOSARTAN POTASSIUM 50 MG TABLET PO SCH ×2 (08:36→21:00)
[2017-12-23] MEDS: ISOSORBIDE DINITRATE 30MG TABLET PO SCH ×3 (08:36→17:00)
[2017-12-23] MEDS: PAROXETINE HCL 10MG TABLET PO SCH (08:36)
[2017-12-23] MEDS: DOCUSATE SODIUM 100MG CAPSULE PO SCH (08:36)
[2017-12-23 12:00] VITALS: BP 109/64
[2017-12-23 16:00] VITALS: BP 145/65
[2017-12-24] VITALS: BP 166/82
[2017-12-24] MEDS ORDERED: ONDANSETRON HCL 4MG TABLET PO PRN (01:45)
[2017-12-24] MEDS: CLONIDINE 0.1MG TABLET PO PRN (02:28)
[2017-12-24] MEDS: HYDRALAZINE HCL 100MG TABLET PO SCH ×3 (05:36→21:15)
[2017-12-24 07:13] LABS: HEMATOCRIT. 25.5 % (42.0-52.0); HEMOGLOBIN. 8.6 g/dL (14.0-18.0); MEAN CORPUSCULAR HEMOGLOBIN 30.9 pg (28.0-32.0); MEAN CORPUSCULAR VOLUME 91.6 fL (80.0-94.0); MEAN PLATELET VOLUME 8.9 fl (7.4-10.4); PLATELET 166 x1000/uL (130-400); RED BLOOD CELL COUNT 2.78 mill/uL (4.7-6.1); RED CELL DISTRIBUTION WIDTH 16.8 % (11.6-14.6)
[2017-12-24] MEDS: DOCUSATE SODIUM 100MG CAPSULE PO SCH (09:00)
[2017-12-24] MEDS: ISOSORBIDE DINITRATE 30MG TABLET PO SCH ×3 (09:00→17:54)
[2017-12-24] MEDS: LOSARTAN POTASSIUM 50 MG TABLET PO SCH ×2 (09:00→21:15)
[2017-12-24] MEDS: CARVEDILOL 6.25 MG TABLET PO SCH ×2 (09:00→21:15)
[2017-12-24] MEDS: PAROXETINE HCL 10MG TABLET PO SCH (09:00)
[2017-12-24 10:25] LABS: PLATELET ESTIMATE NORMAL
[2017-12-24 12:00] VITALS: BP 147/79
[2017-12-24 20:00] VITALS: BP 132/62
[2017-12-24] MEDS: EPOETIN ALFA 4000UNITS/ML VIAL SUBCUT SCH (21:15)
[2017-12-25] VITALS: BP 122/68
[2017-12-25 04:00] VITALS: BP 138/75
[2017-12-25] MEDS: HYDRALAZINE HCL 100MG TABLET PO SCH ×3 (05:22→21:51)
[2017-12-25] MEDS: ISOSORBIDE DINITRATE 30MG TABLET PO SCH ×3 (07:49→17:58)
[2017-12-25] MEDS: PAROXETINE HCL 10MG TABLET PO SCH (07:49)
[2017-12-25] MEDS: CARVEDILOL 6.25 MG TABLET PO SCH ×2 (07:49→21:51)
[2017-12-25] MEDS: LOSARTAN POTASSIUM 50 MG TABLET PO SCH ×2 (07:49→21:51)
[2017-12-25] MEDS: DOCUSATE SODIUM 100MG CAPSULE PO SCH (07:49)
[2017-12-25 12:44] VITALS: BP 132/63
[2017-12-25 17:00] VITALS: BP 119/66
[2017-12-25 20:00] VITALS: BP 132/63
[2017-12-26] VITALS: BP 127/66
[2017-12-26] MEDS: HYDRALAZINE HCL 100MG TABLET PO SCH ×3 (06:00→21:38)
[2017-12-26 08:30] VITALS: BP 162/77
[2017-12-26] MEDS: LOSARTAN POTASSIUM 50 MG TABLET PO SCH ×2 (08:48→21:00)
[2017-12-26] MEDS: PAROXETINE HCL 10MG TABLET PO SCH (08:48)
[2017-12-26] MEDS: CARVEDILOL 6.25 MG TABLET PO SCH ×2 (08:48→21:00)
[2017-12-26] MEDS: ISOSORBIDE DINITRATE 30MG TABLET PO SCH ×3 (08:48→17:00)
[2017-12-26] MEDS: DOCUSATE SODIUM 100MG CAPSULE PO SCH (08:48)
[2017-12-26] MEDS: EPOETIN ALFA 4000UNITS/ML VIAL SUBCUT SCH (21:00)
[2017-12-27] MEDS: HYDRALAZINE HCL 100MG TABLET PO SCH ×2 (05:55→13:36)
[2017-12-27] MEDS: LOSARTAN POTASSIUM 50 MG TABLET PO SCH (09:00)
[2017-12-27] MEDS: CARVEDILOL 6.25 MG TABLET PO SCH (09:00)
[2017-12-27] MEDS: ISOSORBIDE DINITRATE 30MG TABLET PO SCH ×3 (09:00→16:52)
[2017-12-27] MEDS: PAROXETINE HCL 10MG TABLET PO SCH (09:18)
[2017-12-27] MEDS: DOCUSATE SODIUM 100MG CAPSULE PO SCH (09:18)
[2017-12-27 10:27] VITALS: BP 119/57
[2017-12-27] MEDS: CLONIDINE 0.1MG TABLET PO PRN (11:19)
[2017-12-27 12:00] VITALS: BP 166/84
[2017-12-27 13:39] LABS: HEMATOCRIT. 29.7 % (42.0-52.0); HEMOGLOBIN. 9.9 g/dL (14.0-18.0); MEAN CORPUSCULAR HEMOGLOBIN 30.7 pg (28.0-32.0); MEAN CORPUSCULAR VOLUME 92.4 fL (80.0-94.0); MEAN PLATELET VOLUME 8.3 fl (7.4-10.4); PLATELET 169 x1000/uL (130-400); RED BLOOD CELL COUNT 3.22 mill/uL (4.7-6.1); RED CELL DISTRIBUTION WIDTH 16.6 % (11.6-14.6)
[2017-12-27 14:31] LABS: PLATELET ESTIMATE NORMAL
[2017-12-27] MEDS ORDERED: SODIUM POLYSTYRENE SULFONATE 15 G/60 ML BOT PO SCH (15:00)
[2017-12-27 18:26] VITALS: BP 119/57
== END 2017-12-27 19:30 | disposition home or self-care (01) | DRG 194 ==
LOC: ER 15:53 → 8WST 19:10 → ENRESERV 19:49
PROVIDERS: ADMIT Internal Medicine; ATTEND Internal Medicine
PROC: 5A1D70Z Performance of Urinary Filtration, Intermittent, Less than 6 Hours Per Day (ICD-10-PCS; principal; 2017-11-21)
PROC: 5A1D70Z Performance of Urinary Filtration, Intermittent, Less than 6 Hours Per Day (ICD-10-PCS; 2017-11-24)
PROC: 5A1D70Z Performance of Urinary Filtration, Intermittent, Less than 6 Hours Per Day (ICD-10-PCS; 2017-11-26)
PROC: 5A1D70Z Performance of Urinary Filtration, Intermittent, Less than 6 Hours Per Day (ICD-10-PCS; 2017-11-28)
PROC: 30233N1 Transfusion of Nonautologous Red Blood Cells into Peripheral Vein, Percutaneous Approach (ICD-10-PCS; 2017-11-28)
PROC: 5A1D70Z Performance of Urinary Filtration, Intermittent, Less than 6 Hours Per Day (ICD-10-PCS; 2017-11-29)
PROC: 5A1D70Z Performance of Urinary Filtration, Intermittent, Less than 6 Hours Per Day (ICD-10-PCS; 2017-12-01)
PROC: 5A1D70Z Performance of Urinary Filtration, Intermittent, Less than 6 Hours Per Day (ICD-10-PCS; 2017-12-03)
PROC: 5A1D70Z Performance of Urinary Filtration, Intermittent, Less than 6 Hours Per Day (ICD-10-PCS; 2017-12-05)
PROC: 5A1D70Z Performance of Urinary Filtration, Intermittent, Less than 6 Hours Per Day (ICD-10-PCS; 2017-12-07)
PROC: 5A1D70Z Performance of Urinary Filtration, Intermittent, Less than 6 Hours Per Day (ICD-10-PCS; 2017-12-10)
PROC: 5A1D70Z Performance of Urinary Filtration, Intermittent, Less than 6 Hours Per Day (ICD-10-PCS; 2017-12-12)
PROC: 5A1D70Z Performance of Urinary Filtration, Intermittent, Less than 6 Hours Per Day (ICD-10-PCS; 2017-12-14)
PROC: 5A1D70Z Performance of Urinary Filtration, Intermittent, Less than 6 Hours Per Day (ICD-10-PCS; 2017-12-17)
PROC: 5A1D70Z Performance of Urinary Filtration, Intermittent, Less than 6 Hours Per Day (ICD-10-PCS; 2017-12-19)
PROC: 5A1D70Z Performance of Urinary Filtration, Intermittent, Less than 6 Hours Per Day (ICD-10-PCS; 2017-12-22)
PROC: 5A1D70Z Performance of Urinary Filtration, Intermittent, Less than 6 Hours Per Day (ICD-10-PCS; 2017-12-24)
PROC: 5A1D70Z Performance of Urinary Filtration, Intermittent, Less than 6 Hours Per Day (ICD-10-PCS; 2017-12-26)
PROC: 5A1D70Z Performance of Urinary Filtration, Intermittent, Less than 6 Hours Per Day (ICD-10-PCS; 2017-12-27)
DX: I13.2 Hypertensive heart and chronic kidney disease with heart failure and with stage 5 chronic kidney disease, or end stage renal disease (principal); E87.2 Acidosis; E11.22 Type 2 diabetes mellitus with diabetic chronic kidney disease; D69.6 Thrombocytopenia, unspecified; E46 Unspecified protein-calorie malnutrition; I42.9 Cardiomyopathy, unspecified; N18.6 End stage renal disease; E87.5 Hyperkalemia; I50.43 Acute on chronic combined systolic (congestive) and diastolic (congestive) heart failure; D64.9 Anemia, unspecified; D63.8 Anemia in other chronic diseases classified elsewhere; F29 Unspecified psychosis not due to a substance or known physiological condition; D72.819 Decreased white blood cell count, unspecified; Z68.23 Body mass index [BMI] 23.0-23.9, adult; Z99.2 Dependence on renal dialysis; Z91.15 Patient's noncompliance with renal dialysis; Z91.19 Patient's noncompliance with other medical treatment and regimen; Z79.84 Long term (current) use of oral hypoglycemic drugs; Z79.899 Other long term (current) drug therapy; Z82.49 Family history of ischemic heart disease and other diseases of the circulatory system
CPT/HCPCS: 36415; 70450; 71045; 71046; 80048; 80051; 80053; 82607; 82728; 82746; 82962; 83036; 83540; 83550; 83880; 84132; 84484; 85014; 85018; 85025; 85610; 85730; 86705; 86706; 86709; 86803; 86850; 86900; 86920; 87340; 93005; 93306; 93970; 96374; 96375; 97164; 99285; C1893; C9113; G0482; J0885; J1815; J1940; J2405; J3490; J7030; J7040; J7050; J7620; P9016; Q0162